=== PATIENT | male | born 1950 | race Caucasian/White ===

== ENCOUNTER 2017-06-18 06:07 | Day surgery (SDC) | payer MEDICAID ==
[~2017-06-18] VITALS: Ht 157.5 cm; Wt 69.5 kg
[~2017-06-18 06:07] MED LIST: ASPI-1093 PO; ATOR10TA84 PO; DULA1.5P IM; FENO145T PO; FISH1CAP27 PO; INSLAN SQ; ISOS10TA16 PO; METF500T4 PO; METO50 PO; MULT-1203 PO; PROPOFOL 1% 20 ML VIAL IVP ONE; SIMV-259 PO; VALS160T2 PO
[2017-06-18] MEDS ORDERED: SODIUM CHLORIDE 0.9% 1,000 ML IV ONE ×2 (06:33→07:15)
[2017-06-18 06:58] LABS: GLUCOSE,POINT OF CARE 89 MG/DL (70-110)
== END 2017-06-18 08:40 | disposition home or self-care (01) ==
LOC: SURGERY 06:07
PROVIDERS: ATTEND Specialist
DX: Z12.11 Encounter for screening for malignant neoplasm of colon (principal); K64.0 First degree hemorrhoids; E11.9 Type 2 diabetes mellitus without complications; I10 Essential (primary) hypertension; E78.5 Hyperlipidemia, unspecified; K21.9 Gastro-esophageal reflux disease without esophagitis; F10.21 Alcohol dependence, in remission; Z79.01 Long term (current) use of anticoagulants
CPT/HCPCS: 45378; 82962; J2704; J7030